=== PATIENT | male | born 1985 | race African-American/Black ===

== ENCOUNTER 2020-04-19 08:09 | Emergency (ER) | payer BC ==
[2020-04-19] MEDS ORDERED: Ondansetron ODT 4 MG TAB ONE (08:38)
--- NOTE | 2020-04-19 08:50 | RAD ---
XR Abdomen 1 View/KUB HISTORY: Hematemesis COMPARISON: None. FINDINGS: The bowel gas pattern is unremarkable. No suspicious calcifications are seen. No significan t bony abnormalities are seen. IMPRESSION: Unremarkable exam.
== END 2020-04-19 09:20 | disposition home or self-care (01) ==
LOC: ERS 08:09
DX: R11.2 Nausea with vomiting, unspecified (principal); J45.909 Unspecified asthma, uncomplicated; F17.210 Nicotine dependence, cigarettes, uncomplicated
CPT/HCPCS: 74018; Q0162

== ENCOUNTER 2020-09-25 10:44 | Emergency (ER) | payer BC | END 2020-09-25 12:26 | disposition home or self-care (01) | LOC: ERS 10:44 | DX: J45.901 Unspecified asthma with (acute) exacerbation (principal); F17.210 Nicotine dependence, cigarettes, uncomplicated | CPT/HCPCS: 99283 ==